=== PATIENT | female | born 1950 | race Caucasian/White ===

== ENCOUNTER 2019-03-27 14:41 | Emergency (ER) | payer BC ==
[~2019-03-27] VITALS: Ht 157.5 cm; Wt 71.7 kg
[2019-03-27 15:13] VITALS: BP_SYST 189
--- NOTE | 2019-03-27 15:18 | NUR ---
Placed in room 1. Placed on lead blender, blood pressure machine and pulse oximeter. To gown for exam. Side rails up. Report given to Xiomara BLACKMON.
--- NOTE | 2019-03-27 15:21 | NUR ---
Pt is AAO x4 ambulated to ED with complaints of high blood pressure, headache x 3weeks, and left sided chest pain. Pt stated that she was at her new physicians office and was instructed to come to and ED due to high blood pressure.
--- NOTE | 2019-03-27 15:33 | NUR ---
ER at bedside examining patient.
[2019-03-27] MEDS ORDERED: ASPIRIN 81 MG TAB.CHEW PO ONE (16:00)
[2019-03-27 16:17] LABS: BASOPHILS % (AUTO) 0.4 % (0.0-2.0); EOSINOPHILS # (AUTO) 0.1 K/uL (0.0-0.4); EOSINOPHILS % (AUTO) 0.7 % (0.0-4.0); HEMATOCRIT 40.9 % (36-48); HEMOGLOBIN 13.7 g/dL (12.0-16.0); LYMPHOCYTES # (AUTO) 1.9 K/uL (1.0-5.5); LYMPHOCYTES % (AUTO) 21.6 % (20.5-51.5); MEAN CORPUSCULAR HEMOGLOBIN 29 pg (27-31); MEAN CORPUSCULAR HGB CONC 33 % (32-36); MEAN CORPUSCULAR VOLUME 87 fL (79.0-98.0); MONOCYTES # (AUTO) 0.5 K/uL (0.0-1.0); MONOCYTES % (AUTO) 5.1 % (1.7-9.3); NEUTROPHILS # (AUTO) 6.5 K/uL (1.8-7.7); NEUTROPHILS % (AUTO) 72.2 % (40.0-70.0); PLATELET COUNT (AUTO) 307 K/uL (130-430); RED BLOOD CELL COUNT(AUTO) 4.69 MIL/uL (4.2-6.2); RED CELL DISTRIBUTION WIDTH 13.3 % (9.0-15.0)
[2019-03-27 16:26] LABS: CALCIUM 9.7 mg/dL (8.4-11.0); CREATININE 0.8 mg/dL (0.55-1.30); POTASSIUM 4.1 mmol/L (3.5-5.1)
[2019-03-27 16:31] LABS: ALBUMIN 3.7 g/dL (3.4-4.8); TOTAL BILIRUBIN 0.5 mg/dL (0.0-1.0)
--- NOTE | 2019-03-27 16:40 | NUR ---
Patient resting quietly. No acute distress noted. Blood pressure elevated, MD aware.
--- NOTE | 2019-03-27 16:40 | NUR ---
Note jennifer in [facility] - 03/27/19 at 1742 by [email or web address] Patient resting quietly. No acute distress noted. Vital signs within normal range.
[2019-03-27 17:11] LABS: INR 0.9 (0.8-1.2); PROTHROMBIN TIME 9.7 SECS (9.5-12.5)
--- NOTE | 2019-03-27 17:33 | NUR ---
Patient given written and verbal discharge instructions and verbalizes understanding. ER MD discussed with patient the results and treatment provided. Patient in stable condition. ID arm band removed. IV catheter removed intact and dressing applied, no active bleeding. Rx of Ativan given. Patient educated on pain management and to follow up with PMD. Pain Scale 0/10. Opportunity for questions provided and answered. Medication side effect fact sheet provided.
[2019-03-27 17:43] VITALS: BP_SYST 168
== END 2019-03-27 17:43 | disposition home or self-care (01) ==
LOC: SED 14:41
DX: F41.8 Other specified anxiety disorders (principal); F43.0 Acute stress reaction; R07.89 Other chest pain; F41.9 Anxiety disorder, unspecified; I10 Essential (primary) hypertension; Z90.49 Acquired absence of other specified parts of digestive tract; Z90.710 Acquired absence of both cervix and uterus
CPT/HCPCS: 36415; 71045; 80053; 82550-TC; 84484; 85025; 85379; 85610-TC; 85730-TC; 93005; 99284

== ENCOUNTER 2019-07-21 11:54 | Emergency (ER) | payer BC ==
[~2019-07-21] VITALS: Ht 157.5 cm; Wt 66.2 kg
[2019-07-21 12:12] VITALS: BP_SYST 160
[2019-07-21] MEDS ORDERED: MORPHINE 2 MG/ML INJ. SYRINGE IM ONE (13:45)
[2019-07-21 13:52] VITALS: BP_SYST 153
== END 2019-07-21 13:52 | disposition home or self-care (01) ==
LOC: SED 11:54
DX: S29.012A Strain of muscle and tendon of back wall of thorax, initial encounter (principal); I10 Essential (primary) hypertension; F32.9 Major depressive disorder, single episode, unspecified; X50.0XXA Overexertion from strenuous movement or load, initial encounter; Y93.89 Activity, other specified; Y92.89 Other specified places as the place of occurrence of the external cause; Y99.8 Other external cause status
CPT/HCPCS: 71045; 71100; 96372; 99283; J2270